=== PATIENT | male | born 1970 | race Caucasian/White ===

== ENCOUNTER 2017-12-29 16:10 | Emergency (ER) | payer SELFPAY ==
[~2017-12-29] VITALS: Ht 167.6 cm; Wt 67.0 kg
[2017-12-29 16:32] VITALS: BP 157/82
[2017-12-29] MEDS ORDERED: ACETAMINOPHEN 650MG/20.3ML UDC PO ONE (16:45)
== END 2017-12-29 18:19 | disposition home or self-care (01) ==
LOC: ER 16:10
DX: J06.9 Acute upper respiratory infection, unspecified (principal); R03.0 Elevated blood-pressure reading, without diagnosis of hypertension; E11.9 Type 2 diabetes mellitus without complications
CPT/HCPCS: 99282